=== PATIENT | female | born 1975 | race Caucasian/White ===

== ENCOUNTER 2017-04-07 16:19 | Emergency (ER) | payer OTHER ==
[~2017-04-07] VITALS: Wt 91.5 kg
[~2017-04-07 16:19] MED LIST: HYDR-3498 PO; METR500T PO; ZOF8 PO
[2017-04-07 18:22] LABS: BASOPHIL # 0.1 10^3/ul (0.0-0.1); BASOPHILS % 0.6 % (0.0-2.0); EOSINOPHILS # 0.2 10^3/ul (0.0-0.5); EOSINOPHILS % 1.7 % (0.0-7.0); HEMATOCRIT 38.6 % (37.0-47.0); HEMOGLOBIN 12.8 g/dl (12.0-16.0); LYMPHOCYTES # 3.7 10^3/ul (0.8-2.9); LYMPHOCYTES % 35.2 % (15.0-51.0); MEAN CORPUSCULAR HEMOGLOBIN 30.1 pg (29.0-33.0); MEAN CORPUSCULAR HGB CONC 33.2 g/dl (32.0-37.0); MEAN CORPUSCULAR VOLUME 90.8 fl (82.0-101.0); MEAN PLATELET VOLUME 9.3 fl (7.4-10.4); MONOCYTE # 0.7 10^3/ul (0.3-0.9); MONOCYTES % 6.1 % (0.0-11.0); NEUTROPHILS % 56.2 % (39.0-77.0); PLATELET COUNT 249 10^3/UL (140-415); RED BLOOD COUNT 4.25 10^6/ul (4.20-5.40); RED CELL DISTRIBUTION WIDTH 13.9 % (11.5-14.5); WHITE BLOOD COUNT 10.6 10^3/ul (4.8-10.8)
--- NOTE | 2017-04-07 18:28 | RADRPT ---
PROCEDURE: Chest x-ray CLINICAL INDICATION: Chest pain. History of Hodgkin's. TECHNIQUE: Chest single view COMPARISON: 06/28/2015 FINDINGS: The heart is normal in size. The pulmonary vessels are normal in caliber. 3 cc mediastinal adenopat hy has resolved. The lungs are clear. The costophrenic angles are sharp. The visualized bony thora x is unremarkable. IMPRESSION: No acute cardiopulmonary disease. Previously noted mediastinal adenopathy has resolved The questioned lytic area in the right humerus on the prior exam is not imaged on the current study RPTAT: HH .James Schwab MD, MD Date Time Electronically viewed and signed by .James Schwab MD, on 04/07/2017 18:28 .W/
[2017-04-07 18:44] LABS: ANION GAP 20 (8-16); BLOOD UREA NITROGEN 14 mg/dl (7-20); CALCIUM 8.8 mg/dl (8.4-10.2); CARBON DIOXIDE 25 mmol/L (21-31); CHLORIDE 102 mmol/L (97-110); CREATININE 0.85 mg/dl (0.44-1.00); GLUCOSE 87 mg/dl (70-220); POTASSIUM 4.3 mmol/L (3.5-5.1); SODIUM 143 mmol/L (135-144)
[2017-04-07 18:56] LABS: TROPONIN-I < 0.012 ng/ml (0.00-0.12)
[2017-04-07] MEDS ORDERED: IBUP-1542 PO (19:00)
[2017-04-07 19:13] VITALS: BP 122/77; PULSE 77; RESP 16; TEMP 98.9
--- NOTE | 2017-04-07 23:24 | ERD ---
ER Documentation Chief Complaint Date/Time DATE: 04/07/17 TIME: 23:18 Chief Complaint mid upper cp and foot pain HPI 41-year-old female is complaining of midsternal chest pain 2 weeks. Pain comes and goes, is pressure-like. Patient reports shortness of breath with the chest pain. She does not know any positive or provocative factors. Pain does not radiate. Patient has history of Hodgkin's lymphoma, finished chemotherapy over a year ago. She does have regular oncology follow-up. Patient reports chest pain at this time, but no shortness of breath. Denies any fever or chills. Denies recent weight loss. ROS All systems reviewed and are negative except as per history of present illness. Medications Home Meds Active Scripts Ibuprofen* (Motrin*) 600 Mg Tab, 600 MG PO Q6H Y for PAIN AND OR ELEVATED TEMP, #30 TAB Prov:DIMA SHIELDS [employer] 04/07/17 Ondansetron Hcl* (Zofran* ODT) 8 mg -ODT Tab.disper, 8 MG PO Q8 Y for NAUSEA AND OR VOMITING, #30 TAB Prov:TARSHA BEACH 07/02/15 Metronidazole* (Flagyl*) 500 Mg Tab, 500 MG PO Q12 for 7 Days Prov:TARSHA BEACH 07/02/15 Hydrocodone Bit/Acetaminophen (Anexsia 5-325 Mg Tablet) 1 Tab Tab, 1 TAB PO Q6H Y for PAIN LEVEL 4-6, #30 Prov:TARSHA BEACH 05/23/15 Allergies Allergies: Coded Allergies: No Known Drug Allergies (Verified Allergy, Unknown, 05/20/15) PMhx/Soc History of Surgery: Yes (TUMMY TUCK,BREAST IMPLANT) Anesthesia Reaction: No Hx Neurological Disorder: No Hx Respiratory Disorders: No Hx Cardiac Disorders: No Hx Psychiatric Problems: No Hx Miscellaneous Medical Probl: Yes (06/08/2016 LYMPHOMA (NEW DX )) Hx Alcohol Use: No Hx Substance Use: No Hx Tobacco Use: No Smoking Status: Never smoker Physical Exam Vitals Vital Signs Date Time Temp Pulse Resp B/P Pulse Ox O2 Delivery O2 Flow Rate FiO2 04/07/17 19:13 98.9 77 16 122/77 99 Room Air 04/07/17 16:36 99.1 87 20 128/78 99 Physical Exam General: Well-developed, well-nourished, conscious and coherent, in no distress Skin: Warm and dry without rash, good texture and turgor Head: Normocephalic without evidence of trauma Eyes: Sclera and conjunctivae normal; pupils equal, round, and reactive to light; extraocular movements are intact Chest: Normal AP diameter. Good expansion without retractions. Nontender. Lungs are clear to auscultate bilaterally with good tidal volume. Reproducible chest wall tenderness on palpation. Heart: Regular rate and rhythm. No murmur, rub, or gallops heard Extremities: Full range of motion. Good strength bilaterally. No clubbing, cyanosis, or edema. Peripheral pulses are intact. Sensation intact Neuro: Alert and oriented 4, GCS 15. Cranial nerves grossly intact. Motor and sensory exams nonfocal. Moves all extremities. Speech clear. Gait normal Result Diagram: 04/07/175 04/07/175 Results 24 hrs Laboratory Tests Test 04/07/17 18:15 White Blood Count 10.610^3/ul Red Blood Count 4.2510^6/ul Hemoglobin 12.8g/dl Hematocrit 38.6% Mean Corpuscular Volume 90.8fl Mean Corpuscular Hemoglobin 30.1pg Mean Corpuscular Hemoglobin Concent 33.2g/dl Red Cell Distribution Width 13.9% Platelet Count 72204^3/UL Mean Platelet Volume 9.3fl Neutrophils % 56.2% Lymphocytes % 35.2% Monocytes % 6.1% Eosinophils % 1.7% Basophils % 0.6% Nucleated Red Blood Cells % 0.0/100WBC Neutrophils # (Manual) 6.010^3/ul Lymphocytes # 3.710^3/ul Monocytes # 0.710^3/ul Eosinophils # 0.210^3/ul Basophils # 0.110^3/ul Nucleated Red Blood Cells # 0.010^3/ul Sodium Level 143mmol/L Potassium Level 4.3mmol/L Chloride Level 102mmol/L Carbon Dioxide Level 25mmol/L Anion Gap 20 Blood Urea Nitrogen 14mg/dl Creatinine 0.85mg/dl Glucose Level 87mg/dl Calcium Level 8.8mg/dl Troponin I < 0.012ng/ml PROCEDURE: Chest x-ray CLINICAL INDICATION: Chest pain. History of Hodgkin's. TECHNIQUE: Chest single view COMPARISON: 06/28/2015 FINDINGS: The heart is normal in size. The pulmonary vessels are normal in caliber. 3 cc mediastinal adenopathy has resolved. The lungs are clear. The costophrenic angles are sharp. The visualized bony thorax is unremarkable. IMPRESSION: No acute cardiopulmonary disease. Previously noted mediastinal adenopathy has resolved The questioned lytic area in the right humerus on the prior exam is not imaged on the current study RPTAT: HH .James Schwab MD, MD Date Time Electronically viewed and signed by .James Schwab MD, MD on 04/07/2017 18:28 .W/ CC: DIMA SHIELDS. [employer] ENGINEER Procedures/MDM Well-appearing 41-year-old female with history of Hodgkin's lymphoma present ED with chest pain on and off 2 weeks. EKG: Normal sinus rhythm, normal axis. No ST segment elevation or depression. No ectopic beats. No QT prolongation. No other EKG abnormalities. EKG read by Dr. Hodges. Chest x-ray and troponin are also negative. Patient does not have any shortness of breath at this time. I doubt she has NC, aortic dissection, PE, pneumothorax , pneumonia, pericardial tamponade, or Boerhaave syndrome. Patient does have reproducible chest wall tenderness on palpation. Likely her chest pain is due to costochondritis. Patient appears well, stable for discharge and outpatient management. Medical decision making shared with patient and family. Education provided to patient and family. Patient and family expressed understanding of the plan. Medications on discharge: Ibuprofen. Follow-up: Primary care provider in 2-3 days or return to ED if worse. The case was reviewed and discussed with Dr. Hodges, who agrees with the plan of care including labs, treatment, and advanced imaging as appropriate. Disclaimer: Inadvertent spelling and grammatical errors are likely due to EHR/ dictation software use and do not reflect on the overall quality of patient care. Also, please note that the electronic time recorded on this note does not necessarily reflect the actual time of the patient encounter. Departure Diagnosis: Primary Impression: Chest pain Chest pain type: intercostal pain Qualified Code: R07.82 - Intercostal pain Condition: Stable Patient Instructions: Chest Wall Pain, Costochondritis Referrals: GEE LARA (PCP) Additional Instructions: Call your primary care doctor TOMORROW for an appointment during the next 2-3 days.See the doctor sooner or return here if your condition worsens before your appointment time. DIMA SHIELDS NP Apr 07, 2017 23:24
== END 2017-04-07 19:16 | disposition home or self-care (01) ==
LOC: FTE 16:19
DX: R07.82 Intercostal pain (principal)
CPT/HCPCS: 36415; 71010; 80048; 84484; 85025; 93005

== ENCOUNTER → 2018-02-19 | Emergency (ER) | END | disposition home or self-care (01) ==

== ENCOUNTER 2018-03-01 15:16 | Emergency (ER) | END 2018-03-01 19:11 | disposition home or self-care (01) ==

== ENCOUNTER 2018-04-08 13:30 | Emergency (ER) | END 2018-04-08 17:06 | disposition home or self-care (01) ==

== ENCOUNTER 2018-07-04 08:44 | Emergency (ER) | END 2018-07-04 12:16 | disposition home or self-care (01) ==